=== PATIENT | male | born 1955 | race Asian ===

== ENCOUNTER 2016-10-18 20:17 | Inpatient (IN) | payer OTHER ==
[~2016-10-18] VITALS: Ht 170.2 cm; Wt 78.9 kg
[~2016-10-18 20:17] MED LIST: Heparin 5000 units/ml inj IV ONE
[2016-10-18 20:31] VITALS: BP 169/133
[2016-10-18 21:03] LABS: BASOPHILS % (AUTO) 1.5 % (0.0-2.0); EOSINOPHILS % (AUTO) 2.9 % (0.0-3.0); LYMPHOCYTES % (AUTO) 18.6 % (20.0-45.0); MEAN CORPUSCULAR HEMOGLOBIN 30.9 PG (27.0-31.0); MEAN CORPUSCULAR HGB CONC 32.5 G/DL (32.0-36.0); MEAN CORPUSCULAR VOLUME 95 FL (80-99); MONOCYTES % (AUTO) 3.3 % (1.0-10.0); NEUTROPHILS % (AUTO) 73.7 % (45.0-75.0); PLATELET COUNT 172 K/UL (150-450); RED BLOOD COUNT 5.02 M/UL (4.70-6.10); WHITE BLOOD COUNT 13.6 K/UL (4.8-10.8)
--- NOTE | 2016-10-18 21:04 | Emergency Room Report ---
History of Present Illness General Chief Complaint: Chest Pain Source: Patient, Family Member, EMS Present Illness HPI 61 YOM BIBEMS with all day of nausea/vomiting, diaphoresis, chest pain. Didnt improve so son called EMS tonight. Patient given Nitro, ASA with improvement in chest pain to 4/10. Denies fever/chills, cough, SOB. History of HTN but stopped taking med 6 months prior. Denies other med problems, smoking, ETOH, drug use. No prior history of AMI. Allergies: Coded Allergies: No Known Allergies (Unverified , 10/18/16) Patient History Past Medical History: HTN Past Surgical History: none Pertinent Family History: none Social History: Denies: alcohol use, drug use, smoking Immunizations: UTD Reviewed Nursing Documentation: PMH: Agreed, PSxH: Agreed Nursing Documentation-PMH Past Medical History: No History, Except For Hx Hypertension: Yes Review of Systems All Other Systems: negative except mentioned in HPI Physical Exam Vital Signs Date Time Temp Pulse Resp B/P Pulse Ox O2 Delivery O2 Flow Rate FiO2 10/18/16 20:14 97.2 58 14 162/105 99 Room Air Sp02 EP Interpretation: reviewed, abnormal General Appearance: normal inspection, GCS 15, non-toxic, moderate distress, other - pale diaphoretic Head: normocephalic, atraumatic Eyes: bilateral eye EOMI, bilateral eye PERRL ENT: normal ENT inspection, hearing grossly normal, normal voice Neck: normal inspection, full range of motion, supple, no bony tend Respiratory: normal inspection, lungs clear, normal breath sounds, no respiratory distress, no retraction, no wheezing Cardiovascular #1: normal peripheral pulses, regular rate, rhythm, no edema, no gallop, bradycardia Gastrointestinal: normal inspection, normal bowel sounds, non tender, soft, no guarding, no hernia Genitourinary: no CVA tenderness Musculoskeletal: normal inspection, back normal, normal range of motion, Jae' s Sign negative Neurologic: normal inspection, alert, oriented x3, responsive, project hire III-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 unstable angina vs MSK pain Possible interventions - Heparin, SL Ntg, Nitro drip, Thrombolytics, repeat EKG. Atropin was given 2x in ED ASA given by EMS Critical care time of 45 minutes including: re-exams and consultations and review of serial EKG's and Laboratory tests, not including reportable procedures and consulting with Dr Smith Cardiology Medical Decision Making Diagnostic Impression: Primary Impression: Chest pain Qualified Codes: R07.2 - Precordial pain Additional Impressions: Bradycardia Hypokalemia ER Course 61 YO M with substernal chest pain with assoc n/v/diaphoresis. Was given SL nitro, ASA by EMS Became bradycardic but asymptomatic in ED Given 2x atropine with improvement HR to >60 pacer pads placed on patient Repeat serial ECG does not show ST elevation or dynamic ischemia Dr Smith consulted, agrees with plan for atropine, admission, will follow Labs: Mild leuks, likely stress reaction. Troponin 0. K 3.2 Potassium repleted IV Endorsed to Dr Melo at 930pm for NOEL admission EKG Diagnostic Results Rate: bradycardiac Rhythm: other - ?Mild ST elevation in 2, 3 ST Segments: no acute changes ASA given to the pt in ED: No Rhythm Strip Diag. Results EP Interpretation: yes Rate: 45 Rhythm: NSR, no PVC's, no ectopy Chest X-Ray Diagnostic Results EP Interpretation: Yes Findings: no consolidation, no effusion, no pneumothorax, no acute cardiopulmonary disease Number of Views: 1 Last Vital Signs Date Time Temp Pulse Resp B/P Pulse Ox O2 Delivery O2 Flow Rate FiO2 10/18/16 20:31 98.0 56 21 169/133 99 Room Air Status: improved Disposition: ADMITTED INPATIENT Condition: Critical Referrals: [facility],REFERRING (PCP) KARTHIK GENAO M.D. Oct 18, 2016 21:04
[2016-10-18] MEDS ORDERED: Atropine Sulfate 0.4mg/ml inj ONE ×2 (21:16→21:22)
[2016-10-18 21:28] LABS: ALANINE AMINOTRANSFERASE 12 U/L (3-41); ALBUMIN/GLOBULIN RATIO 2.2 (1.0-2.7); ANION GAP 16 (5-15); ASPARTATE AMINO TRANSFERASE 16 U/L (5-40); CALCIUM 7.5 mg/dL (8.6-10.2); CARBON DIOXIDE 22 mEQ/L (20-30); CHLORIDE 107 mEQ/L (98-107); CREATININE 0.8 mg/dL (0.7-1.2); GLOMERULAR FILTRATION RATE > 60 mL/min (>60); HEMOLYSIS 6; POTASSIUM 3.2 mEQ/L (3.4-4.9); SODIUM 145 mEQ/L (135-145); TOTAL PROTEIN 5.5 g/dL (6.6-8.7); TROPONIN I < 0.30 ng/mL (<=0.30)
[2016-10-18 21:38] LABS: CKMB 1.9 ng/mL (< 6.7)
[2016-10-18 22:00] VITALS: BP 138/62
[2016-10-18] MEDS ORDERED: Miralax 17gm pkt ORAL PRN (22:15)
[2016-10-18] MEDS ORDERED: DuoNeb 0.5-3(2.5)mg/3ml neb HHN PRN (22:15)
[2016-10-18] MEDS ORDERED: Nitroglycerin Subl 0.4mg tab (Bottle Of 25) SL PRN (22:15)
[2016-10-18] MEDS ORDERED: Diltiazem 25mg/5ml IV PRN (22:15)
[2016-10-18] MEDS ORDERED: Ketorolac 30mg Inj IV PRN (22:15)
[2016-10-18] MEDS ORDERED: Atropine Sulfate 0.4mg/ml inj 20ML IVP ONE (22:30)
[2016-10-18] MEDS ORDERED: Atropine Sulfate 0.4mg/ml inj IVP ONE (22:30)
--- NOTE | 2016-10-18 22:31 | Cardiology Progress Note ---
Assessment/Plan Assessment/Plan [id number] admit ot icu heparin asa repeat ekg trop and full echo Objective Last 24 Hour Vital Signs Date Time Temp Pulse Resp B/P Pulse Ox O2 Delivery O2 Flow Rate FiO2 10/18/16 20:31 98.0 56 21 169/133 99 Room Air 10/18/16 20:31 56 21 Room Air 10/18/16 20:14 97.2 58 14 162/105 99 Room Air Laboratory Tests Test 10/18/16 20:40 White Blood Count 13.6 K/UL (4.8-10.8) H Red Blood Count 5.02 M/UL (4.70-6.10) Hemoglobin 15.5 G/DL (14.2-18.0) Hematocrit 47.9 % (42.0-52.0) Mean Corpuscular Volume 95 FL (80-99) Mean Corpuscular Hemoglobin 30.9 PG (27.0-31.0) Mean Corpuscular Hemoglobin Concent 32.5 G/DL (32.0-36.0) Red Cell Distribution Width 12.0 % (11.6-14.8) Platelet Count 172 K/UL (150-450) Mean Platelet Volume 8.0 FL (6.5-10.1) Neutrophils (%) (Auto) 73.7 % (45.0-75.0) Lymphocytes (%) (Auto) 18.6 % (20.0-45.0) L Monocytes (%) (Auto) 3.3 % (1.0-10.0) Eosinophils (%) (Auto) 2.9 % (0.0-3.0) Basophils (%) (Auto) 1.5 % (0.0-2.0) Sodium Level 145 mEQ/L (135-145) Potassium Level 3.2 mEQ/L (3.4-4.9) L Chloride Level 107 mEQ/L (98-107) Carbon Dioxide Level 22 mEQ/L (20-30) Anion Gap 16 (5-15) H Blood Urea Nitrogen 19 mg/dL (7-23) Creatinine 0.8 mg/dL (0.7-1.2) Estimat Glomerular Filtration Rate > 60 mL/min (>60) Glucose Level 116 mg/dL (74-106) H Calcium Level 7.5 mg/dL (8.6-10.2) L Total Bilirubin 0.3 mg/dL (0.0-1.2) Aspartate Amino Transf (AST/SGOT) 16 U/L (5-40) Alanine Aminotransferase (ALT/SGPT) 12 U/L (3-41) Alkaline Phosphatase 54 U/L (40-129) Total Creatine Kinase 133 U/L (38-174) Creatine Kinase MB 1.9 ng/mL (< 6.7) Creatine Kinase MB Relative Index 1.4 Troponin I < 0.30 ng/mL (<=0.30) Total Protein 5.5 g/dL (6.6-8.7) L Albumin 3.8 g/dL (3.5-5.2) Globulin 1.7 g/dL Albumin/Globulin Ratio 2.2 (1.0-2.7) JENNIFER SUTTON Oct 18, 2016 22:31
[2016-10-18 22:39] VITALS: BP 146/86
[2016-10-18] MEDS ORDERED: Nitroglycerin 2% oint pkt TOPIC SCH (22:45)
[2016-10-19] VITALS (27 sets, daily range): BP systolic 123–161; BP diastolic 43–96
--- NOTE | 2016-10-19 02:28 | Consultation ---
DATE OF CONSULTATION: CARDIOLOGY CRITICAL CARE NOTE CONSULTING PHYSICIAN: Jassi Stephens M.D. REFERRING PHYSICIAN: Arianna Melo M.D. REASON FOR CONSULT: Chest pain and bradycardia. HISTORY OF PRESENT ILLNESS: This is a 61-year-old, gentleman, who presented to the hospital because of the headaches, nausea, and vomiting that started earlier this morning. He has had some slight chest pain that resolved. Approximately three to four hours ago, he started having some more pain in the center of the chest. He describes the discomfort as constricting tightening sensation. He presented to the emergency room and was diaphoretic that he has been apparently all day. He is no longer having the chest pain nor the headache nor the nausea nor the vomiting and he feels quite comfortable at the present time. He has had the same discomfort for number of years that would intermittently present, but not really exertional related. He has never discussed this with his doctor. In fact he, has not seen a doctor for approximately six months. PAST MEDICAL HISTORY: Positive for high blood pressure and high cholesterol. No history of heart attack. No cancer, stroke, hepatitis, tuberculosis, asthma, emphysema, ulcers, kidney problems, liver problems, thyroid problems, and anemia. He may have had some arthritis. No prostate problems. ALLERGIES: He has no known drug allergies. SOCIAL HISTORY: He quit smoking approximately 26 years ago. No alcohol. No drugs. REVIEW OF SYSTEMS: Constitutional: Negative. Pulmonary: Negative. Cardiac: There has not been any real PND or orthopnea. He does occasionally get palpitations, occasionally dizzy, and lightheaded when he sits up. Gastrointestinal: Positive for nausea and vomiting. No diarrhea. No bloody stools or black tarry stools. Genitourinary: Negative. PHYSICAL EXAMINATION: GENERAL: Shows to be middle-aged gentleman, in no apparent respiratory distress. NECK: Supple. No jugular venous distention. Carotid upstrokes intact. LUNGS: Appear to be clear to auscultation and percussion. CARDIAC: S1 is normal. S2 is normal. Regular rate and rhythm. No heaves. No thrills. No gallops noted. ABDOMEN: Soft and nontender. Positive bowel sounds. EXTREMITIES: There is no clubbing, cyanosis, nor is there any edema. NEUROLOGIC: He is awake, alert, responsive, and in no apparent respiratory distress. LABORATORY DATA: He had several EKGs. He has had some ST-segment elevation in leads V1 and V2, probably more pronounced in the second EKG, although this is very minimal and he does have T-wave inversions in V1 and V2. He did have it earlier in V3 and V4 and those T-wave changes have really resolved. His initial EKG did not have any evidence of the T-wave inversions in those leads and those apparently became present and subsequently have resolved. He has had a chest x-ray. The chest x-ray, to my reading, does not really appear to be significantly abnormal. No infiltrates. He does not seem to have a widening of the mediastinum and no pleural effusion is noted. Troponin of less than 0.03, at least the first set. His white count was 13.6, hemoglobin 15.5, and a platelet count 172,000. Sodium is 142, potassium 3.2, chloride 107, bicarbonate 22, bicarb of 23, BUN of 19, creatinine 0.8, glucose of 116, and calcium is 7.5. His albumin is only 3.8. Troponin less than 0.03 and no other data available. I did personally perform a bedside limited non-recordable echo. His LV function on the views that were obtainable appeared to be intact. I did not appreciate any segmental wall motion abnormalities on this echocardiogram at the time that it was being done. ASSESSMENT: 1. Chest pain. 2. Coronary syndrome, likely. 3. Hypertension history. 4. Hyperlipidemia history. 5. Bradycardia, possibly vagal related. PLAN: Dr. Melo, this patient was seen in cardiac consultation. I suspect that he may have had an acute coronary syndrome. He seems quite comfortable at the present time, but would place him on some nitroglycerin, aspirin, and heparin for the time being. Serial enzymes, EKGs, and official echocardiogram to be performed tomorrow. We are trying to locate an old EKG to compare with these changes that has not been successful at least at [facility] where the patient has previously thought to have been admitted. I have asked the ER staff to contact the other hospitals to see if any older EKGs can be possible for further evaluation. If the coronary syndrome is proven then he definitely would need a cardiac catheterization. His pain has completely resolved. The pain really never radiated to the back nor to the left arm and unfortunately, he has had the same pain apparently to a more less degree over number of years on several multiple occasions and not exertion related and he has not had been studied. In either case, the further recommendations based on report of the above, probably should be monitored in a closer setting. Jassi Stephens M.D. DR: LANDEN JOB#: [id number] CC:
[2016-10-19 03:47] LABS: PROTHROMBIN TIME 10.2 SEC (9.30-11.50)
[2016-10-19] MEDS ORDERED: Heparin 5000 units/ml inj IV ONE (04:30)
[2016-10-19] MEDS ORDERED: Heparin 25,000u/D5W 500ml 500 ML IV SCH (04:30)
[2016-10-19] MEDS: Morphine Sulfate 2mg/ml Inj IVP PRN (04:37)
[2016-10-19 06:31] LABS: BASOPHILS % (AUTO) 0.7 % (0.0-2.0); LYMPHOCYTES % (AUTO) 15.1 % (20.0-45.0); MEAN CORPUSCULAR HEMOGLOBIN 31.4 PG (27.0-31.0); MEAN CORPUSCULAR HGB CONC 33.3 G/DL (32.0-36.0); MEAN CORPUSCULAR VOLUME 94 FL (80-99); MEAN PLATELET VOLUME 6.7 FL (6.5-10.1); MONOCYTES % (AUTO) 2.5 % (1.0-10.0); NEUTROPHILS % (AUTO) 80.8 % (45.0-75.0); PLATELET COUNT 137 K/UL (150-450); RED BLOOD COUNT 4.48 M/UL (4.70-6.10); RED CELL DISTRIBUTION WIDTH 11.7 % (11.6-14.8); WHITE BLOOD COUNT 10.1 K/UL (4.8-10.8)
[2016-10-19 06:51] LABS: CHOLESTEROL 178 mg/dL (< 200); CHOLESTEROL/HDL RATIO 4.5 (3.3-4.4); CRP QUANT < 0.3 mg/dL (< 0.5); HEMOLYSIS 7; LDL CHOLESTEROL (CALC.) 124 mg/dL (60-99)
[2016-10-19 06:58] LABS: ANION GAP 12 (5-15); CALCIUM 8.5 mg/dL (8.6-10.2); CARBON DIOXIDE 25 mEQ/L (20-30); CHLORIDE 105 mEQ/L (98-107); CREATININE 0.7 mg/dL (0.7-1.2); GLOMERULAR FILTRATION RATE > 60 mL/min (>60); HEMOLYSIS 7; POTASSIUM 4.4 mEQ/L (3.4-4.9); SODIUM 142 mEQ/L (135-145)
[2016-10-19 07:14] LABS: THYROID STIMULATING HORMONE 0.502 uIU/mL (0.300-4.500)
[2016-10-19 07:40] LABS: TROPONIN I < 0.30 ng/mL (<=0.30)
--- NOTE | 2016-10-19 08:02 | Cardiology Progress Note ---
Assessment/Plan Assessment/Plan 1. Chest pain. 2. Coronary syndrome, now unlikely. 3. Hypertension history. 4. Hyperlipidemia history. 5. Bradycardia, possibly vagal related. 6. head ache 7. recurrent nausea vomiting head ache resolved until just now restarted agian as is t did yest am and resolved last nite no cp today trop neg ekg not done yet will dc heparin since trop neg await ekg antiemetics echo Subjective Cardiovascular: Denies: lightheadedness Respiratory: Denies: shortness of breath Gastrointestinal/Abdominal: Reports: nausea, vomiting Subjective recurrent head ache juast stared with nausea no cp confirmed by sweat band separator Objective Last 24 Hour Vital Signs Date Time Temp Pulse Resp B/P Pulse Ox O2 Delivery O2 Flow Rate FiO2 10/19/16 07:43 59 16 Room Air 21 10/19/16 07:00 57 13 134/83 97 Room Air 10/19/16 06:00 45 21 123/43 97 Room Air 10/19/16 05:00 49 21 134/84 97 Room Air 10/19/16 04:00 98.1 50 19 139/84 98 Room Air 10/19/16 03:00 49 18 127/87 98 Room Air 10/19/16 02:00 55 18 141/91 98 Room Air 10/19/16 01:39 135/87 10/19/16 01:00 47 18 135/87 98 Room Air 10/19/16 00:50 98.0 46 14 145/85 99 Room Air 10/19/16 00:40 51 18 145/85 98 Room Air 10/19/16 00:40 51 10/19/16 00:31 54 13 139/91 97 Room Air 10/19/16 00:00 98.4 54 13 139/91 97 Room Air 10/18/16 22:39 98.4 62 19 146/86 99 Room Air 10/18/16 22:00 97.8 0 19 138/62 99 Room Air 10/18/16 20:31 98.0 56 21 169/133 99 Room Air 10/18/16 20:31 56 21 Room Air 10/18/16 20:14 97.2 58 14 162/105 99 Room Air General Appearance: no apparent distress Neck: no JVD Cardiovascular: normal rate, regular rhythm Respiratory/Chest: lungs clear, normal breath sounds Abdomen: normal bowel sounds, non tender, soft Extremities: no swelling Intake and Output 10/18/16 10/19/16 19:00 07:00 Intake Total 63418.051 ml Output Total 600 ml Balance 51315.051 ml Intake Oral 200 ml IV Total 78358.051 ml Output Urine Total 600 ml Laboratory Tests Test 10/18/16 20:40 10/19/16 03:15 White Blood Count 13.6 K/UL (4.8-10.8) H 10.1 K/UL (4.8-10.8) Red Blood Count 5.02 M/UL (4.70-6.10) 4.48 M/UL (4.70-6.10) L Hemoglobin 15.5 G/DL (14.2-18.0) 14.1 G/DL (14.2-18.0) L Hematocrit 47.9 % (42.0-52.0) 42.2 % (42.0-52.0) Mean Corpuscular Volume 95 FL (80-99) 94 FL (80-99) Mean Corpuscular Hemoglobin 30.9 PG (27.0-31.0) 31.4 PG (27.0-31.0) H Mean Corpuscular Hemoglobin Concent 32.5 G/DL (32.0-36.0) 33.3 G/DL (32.0-36.0) Red Cell Distribution Width 12.0 % (11.6-14.8) 11.7 % (11.6-14.8) Platelet Count 172 K/UL (150-450) 137 K/UL (150-450) L Mean Platelet Volume 8.0 FL (6.5-10.1) 6.7 FL (6.5-10.1) Neutrophils (%) (Auto) 73.7 % (45.0-75.0) 80.8 % (45.0-75.0) H Lymphocytes (%) (Auto) 18.6 % (20.0-45.0) L 15.1 % (20.0-45.0) L Monocytes (%) (Auto) 3.3 % (1.0-10.0) 2.5 % (1.0-10.0) Eosinophils (%) (Auto) 2.9 % (0.0-3.0) 1.0 % (0.0-3.0) Basophils (%) (Auto) 1.5 % (0.0-2.0) 0.7 % (0.0-2.0) Sodium Level 145 mEQ/L (135-145) 142 mEQ/L (135-145) Potassium Level 3.2 mEQ/L (3.4-4.9) L 4.4 mEQ/L (3.4-4.9) Chloride Level 107 mEQ/L (98-107) 105 mEQ/L (98-107) Carbon Dioxide Level 22 mEQ/L (20-30) 25 mEQ/L (20-30) Anion Gap 16 (5-15) H 12 (5-15) Blood Urea Nitrogen 19 mg/dL (7-23) 17 mg/dL (7-23) Creatinine 0.8 mg/dL (0.7-1.2) 0.7 mg/dL (0.7-1.2) Estimat Glomerular Filtration Rate > 60 mL/min (>60) > 60 mL/min (>60) Glucose Level 116 mg/dL (74-106) H 97 mg/dL (74-106) Calcium Level 7.5 mg/dL (8.6-10.2) L 8.5 mg/dL (8.6-10.2) L Total Bilirubin 0.3 mg/dL (0.0-1.2) Aspartate Amino Transf (AST/SGOT) 16 U/L (5-40) Alanine Aminotransferase (ALT/SGPT) 12 U/L (3-41) Alkaline Phosphatase 54 U/L (40-129) Total Creatine Kinase 133 U/L (38-174) Creatine Kinase MB 1.9 ng/mL (< 6.7) Creatine Kinase MB Relative Index 1.4 Troponin I < 0.30 ng/mL (<=0.30) < 0.30 ng/mL (<=0.30) Total Protein 5.5 g/dL (6.6-8.7) L Albumin 3.8 g/dL (3.5-5.2) Globulin 1.7 g/dL Albumin/Globulin Ratio 2.2 (1.0-2.7) Prothrombin Time 10.2 SEC (9.30-11.50) Prothromb Time International Ratio 1.0 (0.9-1.1) Activated Partial Thromboplast Time 26 SEC (23-33) C-Reactive Protein, Quantitative < 0.3 mg/dL (< 0.5) Triglycerides Level 70 mg/dL (< 150) Cholesterol Level 178 mg/dL (< 200) LDL Cholesterol 124 mg/dL (60-99) H HDL Cholesterol 40 mg/dL (> 60) Cholesterol/HDL Ratio 4.5 (3.3-4.4) H Thyroid Stimulating Hormone (TSH) 0.502 uIU/mL (0.300-4.500) JENNIFER SUTTON Oct 19, 2016 08:02
[2016-10-19] MEDS ORDERED: Atropine Inj 1mg/10ml Syr ONE (08:10)
[2016-10-19] MEDS: Aspirin Baby 81mg ORAL SCH (08:21)
[2016-10-19] MEDS ORDERED: Heparin 5000 units/ml inj SUBQ SCH (09:00)
[2016-10-19] MEDS ORDERED: Atropine Inj 1mg/10ml Syr IVP ONE (09:00)
[2016-10-19] MEDS ORDERED: Atropine Sulfate 0.4mg/ml inj IVP ONE (09:00)
[2016-10-19] MEDS ORDERED: AMLODIPINE BESY10 MG ORAL (10:24)
[2016-10-19] MEDS ORDERED: PRAVASTATIN SOD20 M1 ORAL (10:24)
[2016-10-19] MEDS ORDERED: LOSARTAN-HCTZ1 EACH ORAL (10:24)
[2016-10-19] MEDS ORDERED: ASPIR 8181 MG ORAL (10:25)
--- NOTE | 2016-10-19 10:53 | History and Physical ---
History of Present Illness General Date patient seen: Oct 19, 2016 Reason for Hospitalization: Chest Pain Present Illness HPI 61 year old male with hx of HTN, noncompliant with meds, brought in by paramedics because of all day of nausea/vomiting, diaphoresis, chest pain. . Patient given Nitro, ASA with improvement in chest pain to 4/10. Pt was bradycardic in ER and was seen by Dr. Stephens who transferred the pt to ICU. Allergies: Coded Allergies: No Known Allergies (Unverified , 10/18/16) Medication History Scheduled Amlodipine Besylate* (Amlodipine Besylate*), 10 MG ORAL DAILY, (Reported) Aspirin* (Aspir 81*), 81 MG ORAL DAILY, (Reported) Losartan/Hydrochlorothiazide (Losartan-Hctz 100-12.5 Mg Tab), 1 TAB ORAL DAILY, (Reported) Pravastatin Sod* (Pravastatin Sod*), 20 MG ORAL BEDTIME, (Reported) Patient History Healthcare decision maker pt himself Resuscitation status Full Code Advanced Directive on File Past Medical/Surgical History Past Medical/Surgical History: (1) Hypertension Review of Systems Cardiovascular: Reports: chest pain Gastrointestinal: Reports: nausea, vomiting Physical Exam Lines, tubes and drains: peripheral, central line HEENT: normocephalic, atraumatic Neck: non-tender, normal alignment Respiratory/Chest: chest wall non-tender, lungs clear Cardiovascular/Chest: normal peripheral pulses, normal rate Abdomen: normal bowel sounds, non tender Genitourinary/Rectal: normal genital exam Extremities: normal range of motion Skin Exam: normal pigmentation 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 Last 24 Hour Vital Signs Date Time Temp Pulse Resp B/P Pulse Ox O2 Delivery O2 Flow Rate FiO2 10/19/16 10:00 97.5 57 16 152/96 99 Room Air 10/19/16 09:00 63 16 151/63 100 Nasal Cannula 2.0 10/19/16 08:30 75 15 151/83 100 Nasal Cannula 2.0 10/19/16 08:00 97.3 40 19 134/84 100 Room Air 10/19/16 08:00 45 10/19/16 07:43 59 16 Room Air 21 10/19/16 07:00 57 13 134/83 97 Room Air 10/19/16 06:00 45 21 123/43 97 Room Air 10/19/16 05:00 49 21 134/84 97 Room Air 10/19/16 04:00 98.1 50 19 139/84 98 Room Air 10/19/16 03:00 49 18 127/87 98 Room Air 10/19/16 02:00 55 18 141/91 98 Room Air 10/19/16 01:39 135/87 10/19/16 01:00 47 18 135/87 98 Room Air 10/19/16 00:50 98.0 46 14 145/85 99 Room Air 10/19/16 00:40 51 18 145/85 98 Room Air 10/19/16 00:40 51 10/19/16 00:31 54 13 139/91 97 Room Air 10/19/16 00:00 98.4 54 13 139/91 97 Room Air 10/18/16 22:39 98.4 62 19 146/86 99 Room Air 10/18/16 22:00 97.8 0 19 138/62 99 Room Air 10/18/16 20:31 98.0 56 21 169/133 99 Room Air 10/18/16 20:31 56 21 Room Air 10/18/16 20:14 97.2 58 14 162/105 99 Room Air Intake and Output 10/18/16 10/19/16 19:00 07:00 Intake Total 71323.051 ml Output Total 600 ml Balance 12341.051 ml Intake Oral 200 ml IV Total 07256.051 ml Output Urine Total 600 ml Laboratory Tests Test 10/18/16 20:40 10/19/16 03:15 White Blood Count 13.6 K/UL (4.8-10.8) H 10.1 K/UL (4.8-10.8) Red Blood Count 5.02 M/UL (4.70-6.10) 4.48 M/UL (4.70-6.10) L Hemoglobin 15.5 G/DL (14.2-18.0) 14.1 G/DL (14.2-18.0) L Hematocrit 47.9 % (42.0-52.0) 42.2 % (42.0-52.0) Mean Corpuscular Volume 95 FL (80-99) 94 FL (80-99) Mean Corpuscular Hemoglobin 30.9 PG (27.0-31.0) 31.4 PG (27.0-31.0) H Mean Corpuscular Hemoglobin Concent 32.5 G/DL (32.0-36.0) 33.3 G/DL (32.0-36.0) Red Cell Distribution Width 12.0 % (11.6-14.8) 11.7 % (11.6-14.8) Platelet Count 172 K/UL (150-450) 137 K/UL (150-450) L Mean Platelet Volume 8.0 FL (6.5-10.1) 6.7 FL (6.5-10.1) Neutrophils (%) (Auto) 73.7 % (45.0-75.0) 80.8 % (45.0-75.0) H Lymphocytes (%) (Auto) 18.6 % (20.0-45.0) L 15.1 % (20.0-45.0) L Monocytes (%) (Auto) 3.3 % (1.0-10.0) 2.5 % (1.0-10.0) Eosinophils (%) (Auto) 2.9 % (0.0-3.0) 1.0 % (0.0-3.0) Basophils (%) (Auto) 1.5 % (0.0-2.0) 0.7 % (0.0-2.0) Sodium Level 145 mEQ/L (135-145) 142 mEQ/L (135-145) Potassium Level 3.2 mEQ/L (3.4-4.9) L 4.4 mEQ/L (3.4-4.9) Chloride Level 107 mEQ/L (98-107) 105 mEQ/L (98-107) Carbon Dioxide Level 22 mEQ/L (20-30) 25 mEQ/L (20-30) Anion Gap 16 (5-15) H 12 (5-15) Blood Urea Nitrogen 19 mg/dL (7-23) 17 mg/dL (7-23) Creatinine 0.8 mg/dL (0.7-1.2) 0.7 mg/dL (0.7-1.2) Estimat Glomerular Filtration Rate > 60 mL/min (>60) > 60 mL/min (>60) Glucose Level 116 mg/dL (74-106) H 97 mg/dL (74-106) Calcium Level 7.5 mg/dL (8.6-10.2) L 8.5 mg/dL (8.6-10.2) L Total Bilirubin 0.3 mg/dL (0.0-1.2) Aspartate Amino Transf (AST/SGOT) 16 U/L (5-40) Alanine Aminotransferase (ALT/SGPT) 12 U/L (3-41) Alkaline Phosphatase 54 U/L (40-129) Total Creatine Kinase 133 U/L (38-174) Creatine Kinase MB 1.9 ng/mL (< 6.7) Creatine Kinase MB Relative Index 1.4 Troponin I < 0.30 ng/mL (<=0.30) < 0.30 ng/mL (<=0.30) Total Protein 5.5 g/dL (6.6-8.7) L Albumin 3.8 g/dL (3.5-5.2) Globulin 1.7 g/dL Albumin/Globulin Ratio 2.2 (1.0-2.7) Prothrombin Time 10.2 SEC (9.30-11.50) Prothromb Time International Ratio 1.0 (0.9-1.1) Activated Partial Thromboplast Time 26 SEC (23-33) C-Reactive Protein, Quantitative < 0.3 mg/dL (< 0.5) Triglycerides Level 70 mg/dL (< 150) Cholesterol Level 178 mg/dL (< 200) LDL Cholesterol 124 mg/dL (60-99) H HDL Cholesterol 40 mg/dL (> 60) Cholesterol/HDL Ratio 4.5 (3.3-4.4) H Thyroid Stimulating Hormone (TSH) 0.502 uIU/mL (0.300-4.500) Height (Feet): 5 Height (Inches): 7.00 Weight (Pounds): 174 Medications Current Medications Medications (Trade) Dose Ordered Sig/Yang Route PRN Reason Start Time Stop Time Status Last Admin Dose Admin Acetaminophen (Tylenol) 650 mg Q4H PRN ORAL FEVER 10/18/16 22:15 11/17/16 22:14 10/19/16 08:02 Albuterol/ Ipratropium (DuoNeb 0.5-3(2.5)mg/3ml) 3 ml Q4H PRN HHN Shortness of Breath 10/18/16 22:15 10/23/16 22:14 Aspirin (ASA) 162 mg DAILY ORAL 10/19/16 09:00 11/18/16 08:59 10/19/16 08:21 Diltiazem HCl (Cardizem) 10 mg Q1H PRN IV heart rate more than 120, 10/18/16 22:15 11/17/16 22:14 Enalaprilat (Vasotec) 2.5 mg Q6H PRN IV sbp more than 160 10/18/16 22:15 11/17/16 22:14 Morphine Sulfate (Morphine Sulfate) 2 mg Q4H PRN IVP severe Pain (Pain Scale 7-10) 10/18/16 22:15 10/25/16 22:14 10/19/16 04:37 Nitroglycerin (Ntg) 0.4 mg Q5M PRN SL Prn Chest Pain 10/18/16 22:15 11/17/16 22:14 Ondansetron HCl (Zofran) 4 mg Q6H PRN IVP Nausea & Vomiting 10/18/16 22:15 11/17/16 22:14 10/19/16 08:02 Pantoprazole (Protonix) 40 mg DAILY ORAL 10/19/16 09:00 11/18/16 08:59 10/19/16 08:21 Polyethylene Glycol (Miralax) 17 gm DAILYPRN PRN ORAL Constipation 10/18/16 22:15 11/17/16 22:14 Temazepam (Restoril) 15 mg HSPRN PRN ORAL Insomnia 10/18/16 22:15 10/25/16 22:14 Assessment/Plan Problem List: (1) ACS (acute coronary syndrome) ICD Codes: I24.9 - Acute ischemic heart disease, unspecified SNOMED: 320976046 (2) Bradycardia ICD Codes: R00.1 - Bradycardia, unspecified SNOMED: 65517497 (3) Hypokalemia ICD Codes: E87.6 - Hypokalemia SNOMED: 55331497 (4) Hypertension ICD Codes: I10 - Essential (primary) hypertension SNOMED: 18989304 Assessment/Plan ICU admit serial ekg, troponin ehco cardio f/u might need cardiac cath. MINERVA RENTERIA Oct 19, 2016 10:53
--- NOTE | 2016-10-19 11:47 | Diagnostic Imaging Report ---
Indication: Chest pain Technique: One view of the chest Comparison: none Findings: Lungs and pleural space are clear. Heart size is borderline enlarged. Tortuous ectatic aorta. Impression: Findings as noted including borderline cardiomegaly. No acute process
[2016-10-20] VITALS (24 sets, daily range): BP systolic 140–179; BP diastolic 79–101
[2016-10-20 07:24] LABS: TROPONIN I < 0.30 ng/mL (<=0.30)
[2016-10-20] MEDS: Aspirin Baby 81mg ORAL SCH ×2 (09:16→09:18)
[2016-10-20] MEDS: Enalaprilat 2.5mg/2ml Inj IV PRN ×3 (09:17→17:42)
--- NOTE | 2016-10-20 10:33 | Pulmonolgy Critical Care Note ---
Critical Care - Asmt/Plan Problems: (1) ACS (acute coronary syndrome) (2) Hypertension (3) Bradycardia Respiratory: monitor respiratory rate, adjust FIO2 Cardiac: continue to monitor HR/BP Renal: F/U I&O Gastrointestinal: continue feedings/current rate Endocrine: monitor blood sugar Hematologic: transfuse if hgb<8.5 Neurologic: PRN Ativan, PRN Morphine, keep patient comfortable Prophylaxis: Heparin Notes Reviewed: cardio Discussed with: other - awaiting the recommenddations of of the Cardiology about Critical Care - Objective Last 24 Hour Vital Signs Date Time Temp Pulse Resp B/P Pulse Ox O2 Delivery O2 Flow Rate FiO2 10/20/16 09:18 174/95 10/20/16 09:17 174/95 10/20/16 09:00 97.2 51 20 174/95 95 Nasal Cannula 2.0 10/20/16 08:29 21 10/20/16 08:29 96 Room Air 21 10/20/16 08:29 53 16 Room Air 21 10/20/16 08:00 52 10/20/16 08:00 52 20 171/92 95 Nasal Cannula 2.0 10/20/16 07:00 52 20 172/91 95 Nasal Cannula 2.0 10/20/16 06:00 54 20 155/86 95 Nasal Cannula 2.0 10/20/16 05:00 51 20 155/85 95 Nasal Cannula 2.0 10/20/16 04:00 97.8 49 20 158/85 95 Nasal Cannula 2.0 10/20/16 04:00 48 10/20/16 03:00 51 20 147/89 95 Nasal Cannula 2.0 10/20/16 02:00 50 20 147/89 95 Nasal Cannula 2.0 10/20/16 01:00 50 20 140/88 99 Nasal Cannula 2.0 10/20/16 00:00 48 10/20/16 00:00 97.6 48 20 145/92 99 Nasal Cannula 2.0 10/19/16 23:00 49 20 156/93 99 Nasal Cannula 2.0 10/19/16 22:00 48 16 159/93 98 Nasal Cannula 2.0 10/19/16 21:00 53 14 143/93 98 Nasal Cannula 2.0 10/19/16 20:00 48 10/19/16 20:00 97.8 52 16 158/94 97 Nasal Cannula 2.0 10/19/16 19:46 97 Nasal Cannula 2.0 28 10/19/16 19:46 Nasal Cannula 2.0 28 10/19/16 19:45 47 16 Nasal Cannula 2.0 28 10/19/16 19:00 48 14 157/84 98 Nasal Cannula 2.0 10/19/16 18:00 44 15 155/89 98 Nasal Cannula 2.0 10/19/16 17:00 46 15 161/85 99 Nasal Cannula 2.0 10/19/16 16:00 97.6 43 13 151/87 98 Nasal Cannula 2.0 10/19/16 16:00 43 10/19/16 15:00 43 15 146/89 98 Nasal Cannula 2.0 10/19/16 14:00 48 12 145/86 99 Nasal Cannula 2.0 10/19/16 13:00 47 14 138/81 100 Nasal Cannula 2.0 10/19/16 12:00 97.7 48 15 149/84 99 Nasal Cannula 2.0 10/19/16 12:00 51 10/19/16 10:59 51 15 152/96 100 Nasal Cannula 2.0 Status: awake Condition: critical HEENT: atraumatic Neck: full ROM Lungs: clear Heart: HR/BP stable, HR/BP unstable Abdomen: soft, non-tender, active bowel sounds Extremities: no C/C/E, edema Critical Care - Subjective ROS Limited/Unobtainable: No ICU Day: asymptomatic Condition: improving EKG Rhythm: Sinus Rhythm FI02: 21 I&O: Intake and Output 10/19/16 10/20/16 19:00 07:00 Intake Total 450 ml 180 ml Output Total 1250 ml 1400 ml Balance -800 ml -1220 ml Intake Oral 450 ml 180 ml Output Urine Total 1250 ml 1400 ml Labs: Laboratory Tests Test 10/20/16 05:50 Troponin I < 0.30 ng/mL (<=0.30) MINERVA RENTERIA Oct 20, 2016 10:33
--- NOTE | 2016-10-20 18:18 | Cardiology Progress Note ---
Assessment/Plan Assessment/Plan 1. Chest pain. 2. Coronary syndrome, now unlikely. 3. Hypertension history. 4. Hyperlipidemia history. 5. Bradycardia, possibly vagal related. 6. head ache 7. recurrent nausea vomiting all trop remain neg echo ? doen madison today but nto sig no pain nwo tranfer to tel stress cardiolite in am i am avoiding adenosine due to madison madison is just sinus no pauses hoem if stress test is ok Subjective Cardiovascular: Denies: chest pain, lightheadedness, palpitations Respiratory: Denies: shortness of breath Gastrointestinal/Abdominal: Denies: abdominal pain Genitourinary: Denies: burning Subjective no head ache Objective Last 24 Hour Vital Signs Date Time Temp Pulse Resp B/P Pulse Ox O2 Delivery O2 Flow Rate FiO2 10/20/16 17:42 175/97 10/20/16 17:00 98.1 51 18 164/97 98 Nasal Cannula 2.0 10/20/16 16:15 53 10/20/16 16:00 59 18 170/101 98 Nasal Cannula 2.0 10/20/16 15:00 55 18 157/87 98 Nasal Cannula 2.0 10/20/16 14:00 51 11 177/96 98 Nasal Cannula 2.0 10/20/16 13:00 49 20 179/97 98 Nasal Cannula 2.0 10/20/16 12:16 50 10/20/16 12:00 97.0 48 18 178/89 98 Nasal Cannula 2.0 10/20/16 11:00 50 20 168/88 98 Nasal Cannula 2.0 10/20/16 10:00 52 20 165/85 99 Nasal Cannula 2.0 10/20/16 09:18 174/95 10/20/16 09:17 174/95 10/20/16 09:00 97.2 51 20 174/95 95 Nasal Cannula 2.0 10/20/16 08:29 21 10/20/16 08:29 96 Room Air 21 10/20/16 08:29 53 16 Room Air 21 10/20/16 08:00 52 10/20/16 08:00 52 20 171/92 95 Nasal Cannula 2.0 10/20/16 07:00 52 20 172/91 95 Nasal Cannula 2.0 10/20/16 06:00 54 20 155/86 95 Nasal Cannula 2.0 10/20/16 05:00 51 20 155/85 95 Nasal Cannula 2.0 10/20/16 04:00 97.8 49 20 158/85 95 Nasal Cannula 2.0 10/20/16 04:00 48 10/20/16 03:00 51 20 147/89 95 Nasal Cannula 2.0 10/20/16 02:00 50 20 147/89 95 Nasal Cannula 2.0 10/20/16 01:00 50 20 140/88 99 Nasal Cannula 2.0 10/20/16 00:00 48 10/20/16 00:00 97.6 48 20 145/92 99 Nasal Cannula 2.0 10/19/16 23:00 49 20 156/93 99 Nasal Cannula 2.0 10/19/16 22:00 48 16 159/93 98 Nasal Cannula 2.0 10/19/16 21:00 53 14 143/93 98 Nasal Cannula 2.0 10/19/16 20:00 48 10/19/16 20:00 97.8 52 16 158/94 97 Nasal Cannula 2.0 10/19/16 19:46 97 Nasal Cannula 2.0 28 10/19/16 19:46 Nasal Cannula 2.0 28 10/19/16 19:45 47 16 Nasal Cannula 2.0 28 10/19/16 19:00 48 14 157/84 98 Nasal Cannula 2.0 General Appearance: alert Neck: supple Cardiovascular: normal rate, regular rhythm Respiratory/Chest: lungs clear, normal breath sounds Abdomen: normal bowel sounds, non tender, soft Extremities: no swelling Intake and Output 10/19/16 10/20/16 19:00 07:00 Intake Total 450 ml 180 ml Output Total 1250 ml 1400 ml Balance -800 ml -1220 ml Intake Oral 450 ml 180 ml Output Urine Total 1250 ml 1400 ml Laboratory Tests Test 10/20/16 05:50 Troponin I < 0.30 ng/mL (<=0.30) JENNIFER SUTTON Oct 20, 2016 18:18
[2016-10-20] MEDS ORDERED: NS 275ml ONE (18:28)
[2016-10-20] MEDS: Losartan 50mg tab ORAL SCH (19:54)
[2016-10-20] MEDS: Morphine Sulfate 2mg/ml Inj IVP PRN (23:58)
[2016-10-21] VITALS (18 sets, daily range): BP systolic 108–161; BP diastolic 55–106
[2016-10-21] MEDS ORDERED: ALPRAZolam 0.5mg tab ORAL PRN ×2 (01:00→21:00)
[2016-10-21 01:20] LABS: TROPONIN I < 0.30 ng/mL (<=0.30)
[2016-10-21 06:18] LABS: BASOPHILS % (AUTO) 0.7 % (0.0-2.0); EOSINOPHILS % (AUTO) 0.6 % (0.0-3.0); LYMPHOCYTES % (AUTO) 10.5 % (20.0-45.0); MEAN CORPUSCULAR HEMOGLOBIN 31.1 PG (27.0-31.0); MEAN CORPUSCULAR HGB CONC 33.3 G/DL (32.0-36.0); MEAN CORPUSCULAR VOLUME 93 FL (80-99); MEAN PLATELET VOLUME 8.7 FL (6.5-10.1); MONOCYTES % (AUTO) 3.3 % (1.0-10.0); NEUTROPHILS % (AUTO) 84.9 % (45.0-75.0); PLATELET COUNT 149 K/UL (150-450); RED BLOOD COUNT 5.17 M/UL (4.70-6.10); WHITE BLOOD COUNT 8.6 K/UL (4.8-10.8)
--- NOTE | 2016-10-21 08:31 | Cardiology Progress Note ---
Assessment/Plan Assessment/Plan 1. Chest pain. 2. Coronary syndrome, now unlikely. 3. Hypertension history. 4. Hyperlipidemia history. 5. Bradycardia, possibly vagal related. 6. head ache 7. recurrent nausea vomiting 8. diaphoresis episodes all trop remain neg even tod ay echo not yet done no pain nwo tranfer to tele stress cardiolite in am i am avoiding adenosine due to madison madisno is just sinus no pauses home if stress test is ok not clear to me why he has genevieve bout of diaphoresis at admission and now will send out plama metanephrines to help evaluate for pheochromocytoma ? he will need to see md in future for fu on resutl , i have explaiend that to him with one our bengali speaking rn he indicated understand thsoe result take some tome to become avialabel Subjective Cardiovascular: Reports: palpitations, Denies: chest pain, lightheadedness Gastrointestinal/Abdominal: Denies: abdominal pain Subjective he apparentlty had palpitation an chest pressure and diaphorris got iv morphine an iv ntg he was anxious they requested anxiety med xnanax gi aguilar he feel fine now Objective Last 24 Hour Vital Signs Date Time Temp Pulse Resp B/P Pulse Ox O2 Delivery O2 Flow Rate FiO2 10/21/16 07:47 61 16 Nasal Cannula 2.0 28 10/21/16 07:46 98 Nasal Cannula 2.0 28 10/21/16 07:46 Nasal Cannula 2.0 28 10/21/16 06:00 66 18 144/88 98 Nasal Cannula 2.0 10/21/16 05:06 80 16 132/88 98 Nasal Cannula 2.0 10/21/16 04:00 75 10/21/16 04:00 97.5 75 16 129/83 97 Nasal Cannula 2.0 10/21/16 03:09 61 16 131/79 97 Nasal Cannula 2.0 10/21/16 02:00 65 16 115/72 98 Nasal Cannula 2.0 10/21/16 01:00 55 18 124/68 99 Nasal Cannula 2.0 10/21/16 00:00 52 10/21/16 00:00 97.0 70 18 108/64 99 Nasal Cannula 2.0 10/20/16 23:56 166/69 10/20/16 23:02 89 17 166/92 98 Nasal Cannula 2.0 10/20/16 22:09 167/93 10/20/16 22:00 69 16 167/82 97 Nasal Cannula 2.0 10/20/16 21:00 58 16 158/79 98 Nasal Cannula 2.0 10/20/16 20:17 49 16 Room Air 21 10/20/16 20:16 96 Room Air 21 10/20/16 20:16 Room Air 10/20/16 20:00 59 10/20/16 20:00 97.4 58 17 151/94 98 Nasal Cannula 2.0 10/20/16 19:54 174/94 10/20/16 19:54 64 174/94 10/20/16 19:00 56 16 174/94 98 Nasal Cannula 2.0 10/20/16 18:00 61 18 168/95 98 Nasal Cannula 2.0 10/20/16 17:42 175/97 10/20/16 17:00 98.1 51 18 164/97 98 Nasal Cannula 2.0 10/20/16 16:15 53 10/20/16 16:00 59 18 170/101 98 Nasal Cannula 2.0 10/20/16 15:00 55 18 157/87 98 Nasal Cannula 2.0 10/20/16 14:00 51 11 177/96 98 Nasal Cannula 2.0 10/20/16 13:00 49 20 179/97 98 Nasal Cannula 2.0 10/20/16 12:16 50 10/20/16 12:00 97.0 48 18 178/89 98 Nasal Cannula 2.0 10/20/16 11:00 50 20 168/88 98 Nasal Cannula 2.0 10/20/16 10:00 52 20 165/85 99 Nasal Cannula 2.0 10/20/16 09:18 174/95 10/20/16 09:17 174/95 10/20/16 09:00 97.2 51 20 174/95 95 Nasal Cannula 2.0 10/20/16 08:29 21 10/20/16 08:29 96 Room Air 21 10/20/16 08:29 53 16 Room Air 21 General Appearance: no apparent distress, alert Neck: no JVD Cardiovascular: normal rate, regular rhythm Respiratory/Chest: lungs clear, normal breath sounds Abdomen: non tender, soft Extremities: no swelling Intake and Output 10/20/16 10/21/16 19:00 07:00 Intake Total 850 ml Output Total 2180 ml 1000 ml Balance -1330 ml -1000 ml Intake Oral 850 ml Output Urine Total 2180 ml 1000 ml # Bowel Movements 2 Laboratory Tests Test 10/21/16 00:45 10/21/16 05:25 Troponin I < 0.30 ng/mL (<=0.30) White Blood Count 8.6 K/UL (4.8-10.8) Red Blood Count 5.17 M/UL (4.70-6.10) Hemoglobin 16.0 G/DL (14.2-18.0) Hematocrit 48.1 % (42.0-52.0) Mean Corpuscular Volume 93 FL (80-99) Mean Corpuscular Hemoglobin 31.1 PG (27.0-31.0) H Mean Corpuscular Hemoglobin Concent 33.3 G/DL (32.0-36.0) Red Cell Distribution Width 12.0 % (11.6-14.8) Platelet Count 149 K/UL (150-450) L Mean Platelet Volume 8.7 FL (6.5-10.1) Neutrophils (%) (Auto) 84.9 % (45.0-75.0) H Lymphocytes (%) (Auto) 10.5 % (20.0-45.0) L Monocytes (%) (Auto) 3.3 % (1.0-10.0) Eosinophils (%) (Auto) 0.6 % (0.0-3.0) Basophils (%) (Auto) 0.7 % (0.0-2.0) Microbiology Date/Time Source Procedure Growth Status 10/19/16 00:08 Nasal Nares MRSA Culture - Final NO METHICILLIN RESISTANT STAPH AUREUS... Complete 10/19/16 00:08 Rectum VRE Culture - Final NO VANCOMYCIN RESISTANT ENTEROCOCCUS ... Complete JENNIFER SUTTON Oct 21, 2016 08:31
--- NOTE | 2016-10-21 08:40 | Cardiology Progress Note ---
Assessment/Plan Assessment/Plan 1. Chest pain. 2. Coronary syndrome, now unlikely. 3. Hypertension history. 4. Hyperlipidemia history. 5. Bradycardia, possibly vagal related. 6. head ache 7. recurrent nausea vomiting 8. diaphoresis episodes all trop remain neg even tod ay echo not yet done no pain nwo tranfer to tele stress cardiolite in am i am avoiding adenosine due to madison madison is just sinus no pauses home if stress test is ok not clear to me why he has genevieve bout of diaphoresis at admission and now will send out plama metanephrines to help evaluate for pheochromocytoma ? he will need to see md in future for fu on resutl , i have explaiend that to him with one our amharic speaking rn he indicated understand thsoe result take some tome to become avialabel Subjective Subjective he apparentlty had palpitation an chest pressure and diaphorris got iv morphine an iv ntg he was anxious they requested anxiety med xnanax gi aguilar he feel fine now Objective Last 24 Hour Vital Signs Date Time Temp Pulse Resp B/P Pulse Ox O2 Delivery O2 Flow Rate FiO2 10/21/16 07:47 61 16 Nasal Cannula 2.0 28 10/21/16 07:46 98 Nasal Cannula 2.0 28 10/21/16 07:46 Nasal Cannula 2.0 28 10/21/16 06:00 66 18 144/88 98 Nasal Cannula 2.0 10/21/16 05:06 80 16 132/88 98 Nasal Cannula 2.0 10/21/16 04:00 75 10/21/16 04:00 97.5 75 16 129/83 97 Nasal Cannula 2.0 10/21/16 03:09 61 16 131/79 97 Nasal Cannula 2.0 10/21/16 02:00 65 16 115/72 98 Nasal Cannula 2.0 10/21/16 01:00 55 18 124/68 99 Nasal Cannula 2.0 10/21/16 00:00 52 10/21/16 00:00 97.0 70 18 108/64 99 Nasal Cannula 2.0 10/20/16 23:56 166/69 10/20/16 23:02 89 17 166/92 98 Nasal Cannula 2.0 10/20/16 22:09 167/93 10/20/16 22:00 69 16 167/82 97 Nasal Cannula 2.0 10/20/16 21:00 58 16 158/79 98 Nasal Cannula 2.0 10/20/16 20:17 49 16 Room Air 21 10/20/16 20:16 96 Room Air 21 10/20/16 20:16 Room Air 10/20/16 20:00 59 10/20/16 20:00 97.4 58 17 151/94 98 Nasal Cannula 2.0 10/20/16 19:54 174/94 10/20/16 19:54 64 174/94 10/20/16 19:00 56 16 174/94 98 Nasal Cannula 2.0 10/20/16 18:00 61 18 168/95 98 Nasal Cannula 2.0 10/20/16 17:42 175/97 10/20/16 17:00 98.1 51 18 164/97 98 Nasal Cannula 2.0 10/20/16 16:15 53 10/20/16 16:00 59 18 170/101 98 Nasal Cannula 2.0 10/20/16 15:00 55 18 157/87 98 Nasal Cannula 2.0 10/20/16 14:00 51 11 177/96 98 Nasal Cannula 2.0 10/20/16 13:00 49 20 179/97 98 Nasal Cannula 2.0 10/20/16 12:16 50 10/20/16 12:00 97.0 48 18 178/89 98 Nasal Cannula 2.0 10/20/16 11:00 50 20 168/88 98 Nasal Cannula 2.0 10/20/16 10:00 52 20 165/85 99 Nasal Cannula 2.0 10/20/16 09:18 174/95 10/20/16 09:17 174/95 10/20/16 09:00 97.2 51 20 174/95 95 Nasal Cannula 2.0 Intake and Output 10/20/16 10/21/16 19:00 07:00 Intake Total 850 ml Output Total 2180 ml 1000 ml Balance -1330 ml -1000 ml Intake Oral 850 ml Output Urine Total 2180 ml 1000 ml # Bowel Movements 2 Laboratory Tests Test 10/21/16 00:45 10/21/16 05:25 Troponin I < 0.30 ng/mL (<=0.30) White Blood Count 8.6 K/UL (4.8-10.8) Red Blood Count 5.17 M/UL (4.70-6.10) Hemoglobin 16.0 G/DL (14.2-18.0) Hematocrit 48.1 % (42.0-52.0) Mean Corpuscular Volume 93 FL (80-99) Mean Corpuscular Hemoglobin 31.1 PG (27.0-31.0) H Mean Corpuscular Hemoglobin Concent 33.3 G/DL (32.0-36.0) Red Cell Distribution Width 12.0 % (11.6-14.8) Platelet Count 149 K/UL (150-450) L Mean Platelet Volume 8.7 FL (6.5-10.1) Neutrophils (%) (Auto) 84.9 % (45.0-75.0) H Lymphocytes (%) (Auto) 10.5 % (20.0-45.0) L Monocytes (%) (Auto) 3.3 % (1.0-10.0) Eosinophils (%) (Auto) 0.6 % (0.0-3.0) Basophils (%) (Auto) 0.7 % (0.0-2.0) Microbiology Date/Time Source Procedure Growth Status 10/19/16 00:08 Nasal Nares MRSA Culture - Final NO METHICILLIN RESISTANT STAPH AUREUS... Complete 10/19/16 00:08 Rectum VRE Culture - Final NO VANCOMYCIN RESISTANT ENTEROCOCCUS ... Complete JENNIFER SUTTON Oct 21, 2016 08:40
[2016-10-21] MEDS: Losartan 50mg tab ORAL SCH (09:11)
--- NOTE | 2016-10-21 09:34 | Pulmonolgy Critical Care Note ---
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, 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 crisis - Objective Last 24 Hour Vital Signs Date Time Temp Pulse Resp B/P Pulse Ox O2 Delivery O2 Flow Rate FiO2 10/21/16 09:12 78 171/98 10/21/16 09:11 171/98 10/21/16 07:47 61 16 Nasal Cannula 2.0 28 10/21/16 07:46 98 Nasal Cannula 2.0 28 10/21/16 07:46 Nasal Cannula 2.0 28 10/21/16 06:00 66 18 144/88 98 Nasal Cannula 2.0 10/21/16 05:06 80 16 132/88 98 Nasal Cannula 2.0 10/21/16 04:00 75 10/21/16 04:00 97.5 75 16 129/83 97 Nasal Cannula 2.0 10/21/16 03:09 61 16 131/79 97 Nasal Cannula 2.0 10/21/16 02:00 65 16 115/72 98 Nasal Cannula 2.0 10/21/16 01:00 55 18 124/68 99 Nasal Cannula 2.0 10/21/16 00:00 52 10/21/16 00:00 97.0 70 18 108/64 99 Nasal Cannula 2.0 10/20/16 23:56 166/69 10/20/16 23:02 89 17 166/92 98 Nasal Cannula 2.0 10/20/16 22:09 167/93 10/20/16 22:00 69 16 167/82 97 Nasal Cannula 2.0 10/20/16 21:00 58 16 158/79 98 Nasal Cannula 2.0 10/20/16 20:17 49 16 Room Air 21 10/20/16 20:16 96 Room Air 21 10/20/16 20:16 Room Air 10/20/16 20:00 59 10/20/16 20:00 97.4 58 17 151/94 98 Nasal Cannula 2.0 10/20/16 19:54 174/94 10/20/16 19:54 64 174/94 10/20/16 19:00 56 16 174/94 98 Nasal Cannula 2.0 10/20/16 18:00 61 18 168/95 98 Nasal Cannula 2.0 10/20/16 17:42 175/97 10/20/16 17:00 98.1 51 18 164/97 98 Nasal Cannula 2.0 10/20/16 16:15 53 10/20/16 16:00 59 18 170/101 98 Nasal Cannula 2.0 10/20/16 15:00 55 18 157/87 98 Nasal Cannula 2.0 10/20/16 14:00 51 11 177/96 98 Nasal Cannula 2.0 10/20/16 13:00 49 20 179/97 98 Nasal Cannula 2.0 10/20/16 12:16 50 10/20/16 12:00 97.0 48 18 178/89 98 Nasal Cannula 2.0 10/20/16 11:00 50 20 168/88 98 Nasal Cannula 2.0 10/20/16 10:00 52 20 165/85 99 Nasal Cannula 2.0 Status: awake Condition: critical, grave HEENT: atraumatic Lungs: clear, chest wall tender Heart: HR/BP stable Abdomen: soft, non-tender Extremities: no C/C/E, edema Micro: Microbiology Date/Time Source Procedure Growth Status 10/19/16 00:08 Nasal Nares MRSA Culture - Final NO METHICILLIN RESISTANT STAPH AUREUS... Complete 10/19/16 00:08 Rectum VRE Culture - Final NO VANCOMYCIN RESISTANT ENTEROCOCCUS ... Complete Critical Care - Subjective ICU Day: 3 Interval Events: episodes of diaphoresis FI02: 28 I&O: Intake and Output 10/20/16 10/21/16 19:00 07:00 Intake Total 850 ml Output Total 2180 ml 1000 ml Balance -1330 ml -1000 ml Intake Oral 850 ml Output Urine Total 2180 ml 1000 ml # Bowel Movements 2 CXR: no change Labs: Laboratory Tests Test 10/21/16 00:45 10/21/16 05:25 Troponin I < 0.30 ng/mL (<=0.30) White Blood Count 8.6 K/UL (4.8-10.8) Red Blood Count 5.17 M/UL (4.70-6.10) Hemoglobin 16.0 G/DL (14.2-18.0) Hematocrit 48.1 % (42.0-52.0) Mean Corpuscular Volume 93 FL (80-99) Mean Corpuscular Hemoglobin 31.1 PG (27.0-31.0) H Mean Corpuscular Hemoglobin Concent 33.3 G/DL (32.0-36.0) Red Cell Distribution Width 12.0 % (11.6-14.8) Platelet Count 149 K/UL (150-450) L Mean Platelet Volume 8.7 FL (6.5-10.1) Neutrophils (%) (Auto) 84.9 % (45.0-75.0) H Lymphocytes (%) (Auto) 10.5 % (20.0-45.0) L Monocytes (%) (Auto) 3.3 % (1.0-10.0) Eosinophils (%) (Auto) 0.6 % (0.0-3.0) Basophils (%) (Auto) 0.7 % (0.0-2.0) MINERVA RENTERIA Oct 21, 2016 09:34
[2016-10-21] MEDS ORDERED: Enalaprilat 2.5mg/2ml Inj IV PRN (15:00)
[2016-10-21] MEDS ORDERED: Miralax 17gm pkt ORAL PRN (15:00)
[2016-10-21] MEDS ORDERED: DuoNeb 0.5-3(2.5)mg/3ml neb HHN PRN (15:00)
--- NOTE | 2016-10-21 15:36 | Diagnostic Imaging Report ---
Indication: chest pain Technique: The study was conducted under the supervision of a teletype mechanic. 10.1 mCi of technetium 99m Myoview was intravenously administered. Three plane SPECT imaging of the heart was then performed at rest. The teletype mechanic canceled the stress portion of the examination due to clinical reasons. Comparison: None Clinical data: SPECT imaging shows normal myocardial perfusion. No perfusion defects demonstrated. Impression: Negative resting Myoview SPECT imaging
[2016-10-22 00:36] VITALS: BP 145/99
[2016-10-22 04:18] VITALS: BP 136/88
[2016-10-22 07:15] LABS: BASOPHILS % (AUTO) 0.8 % (0.0-2.0); EOSINOPHILS % (AUTO) 4.4 % (0.0-3.0); LYMPHOCYTES % (AUTO) 26.9 % (20.0-45.0); MEAN CORPUSCULAR HEMOGLOBIN 31.3 PG (27.0-31.0); MEAN CORPUSCULAR HGB CONC 33.8 G/DL (32.0-36.0); MEAN CORPUSCULAR VOLUME 93 FL (80-99); MEAN PLATELET VOLUME 8.5 FL (6.5-10.1); MONOCYTES % (AUTO) 5.2 % (1.0-10.0); NEUTROPHILS % (AUTO) 62.6 % (45.0-75.0); PLATELET COUNT 157 K/UL (150-450); RED BLOOD COUNT 5.41 M/UL (4.70-6.10); RED CELL DISTRIBUTION WIDTH 11.9 % (11.6-14.8); WHITE BLOOD COUNT 8.4 K/UL (4.8-10.8)
[2016-10-22 07:47] VITALS: BP 159/97
[2016-10-22 07:58] LABS: ALANINE AMINOTRANSFERASE 12 U/L (3-41); ALBUMIN/GLOBULIN RATIO 1.6 (1.0-2.7); ANION GAP 18 (5-15); ASPARTATE AMINO TRANSFERASE 15 U/L (5-40); CALCIUM 9.2 mg/dL (8.6-10.2); CARBON DIOXIDE 22 mEQ/L (20-30); CHLORIDE 99 mEQ/L (98-107); CREATININE 1.1 mg/dL (0.7-1.2); GLOMERULAR FILTRATION RATE > 60 mL/min (>60); HEMOLYSIS 11; PHOSPHORUS 3.4 mg/dL (2.5-4.8); POTASSIUM 3.9 mEQ/L (3.4-4.9); SODIUM 139 mEQ/L (135-145); TOTAL PROTEIN 6.9 g/dL (6.6-8.7)
[2016-10-22] MEDS: Aspirin Baby 81mg ORAL SCH (08:39)
[2016-10-22] MEDS: Losartan 50mg tab ORAL SCH (08:40)
[2016-10-22] MEDS ORDERED: Influenza Virus Vaccine 0.5ml IM ONE (09:00)
[2016-10-22 11:31] VITALS: BP 147/96
--- NOTE | 2016-10-22 12:08 | Pulmonology Progress Note ---
Assessment/Plan Problems: (1) ACS (acute coronary syndrome) (2) Bradycardia (3) Hypokalemia (4) Hypertension Assessment/Plan bp better awaiting cardiology recommendation about plan of care. keep in teli Subjective ROS Limited/Unobtainable: No Interval Events: comfortable, bp better Allergies: Coded Allergies: No Known Allergies (Unverified , 10/18/16) Objective Last 24 Hour Vital Signs Date Time Temp Pulse Resp B/P Pulse Ox O2 Delivery O2 Flow Rate FiO2 10/22/16 11:31 96.5 68 20 147/96 98 Room Air 10/22/16 08:40 159/97 10/22/16 08:39 86 159/97 10/22/16 08:00 77 10/22/16 07:47 97.9 59 20 159/97 98 Nasal Cannula 2.0 10/22/16 06:56 98 Nasal Cannula 2.0 10/22/16 06:55 Nasal Cannula 2.0 10/22/16 04:18 98.7 65 21 136/88 95 Nasal Cannula 2.0 10/22/16 04:00 60 10/22/16 00:36 97.9 77 20 145/99 97 Nasal Cannula 2.0 10/22/16 00:00 65 10/21/16 20:00 67 10/21/16 20:00 97.9 91 18 157/106 Nasal Cannula 2.0 97 10/21/16 19:00 Nasal Cannula 2.0 28 10/21/16 19:00 63 16 Nasal Cannula 2.0 28 10/21/16 19:00 98 Nasal Cannula 2.0 28 10/21/16 16:00 97.9 85 18 150/79 Nasal Cannula 2.0 98 10/21/16 16:00 73 10/21/16 15:11 97.9 65 20 148/55 98 Nasal Cannula 2.0 10/21/16 15:00 57 18 151/63 99 Nasal Cannula 2.0 10/21/16 14:00 63 19 161/58 99 Nasal Cannula 2.0 Intake and Output 10/21/16 10/22/16 19:00 07:00 Intake Total 250 ml Output Total 1250 ml 500 ml Balance -1000 ml -500 ml Intake Oral 250 ml Output Urine Total 1250 ml 500 ml General Appearance: WD/WN HEENT: normocephalic, atraumatic Respiratory/Chest: chest wall non-tender, lungs clear Cardiovascular: normal peripheral pulses, normal rate Abdomen: normal bowel sounds, soft, non tender Skin: no rash 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1, Estimat Glomerular Filtration Rate > 60, Glucose Level 95, Calcium Level 9.2, Phosphorus Level 3.4, Magnesium Level 2.0, Total Bilirubin 1.0, Aspartate Amino Transf (AST/SGOT) 15, Alanine Aminotransferase (ALT/SGPT) 12, Alkaline Phosphatase 58, Total Protein 6.9, Albumin 4.3, Globulin 2.6, Albumin/Globulin Ratio 1.6 Current Medications Medications (Trade) Dose Ordered Sig/Yang Route PRN Reason Start Time Stop Time Status Last Admin Dose Admin Acetaminophen (Tylenol) 650 mg Q4H PRN ORAL T>100.5 10/21/16 15:00 11/20/16 14:59 Albuterol/ Ipratropium (DuoNeb 0.5-3(2.5)mg/3ml) 3 ml Q4H PRN HHN Shortness of Breath 10/21/16 15:00 10/26/16 14:59 Alprazolam (Xanax) 0.5 mg QHS PRN ORAL For Anxiety 10/21/16 21:00 10/28/16 20:59 Amlodipine Besylate (Norvasc) 10 mg DAILY ORAL 10/22/16 09:00 11/21/16 08:59 10/22/16 08:39 Aspirin (ASA) 162 mg DAILY ORAL 10/22/16 09:00 11/21/16 08:59 10/22/16 08:39 Enalaprilat (Vasotec) 2.5 mg Q6H PRN IV sbp more than 160 10/21/16 15:00 11/20/16 14:59 Hydralazine HCl (Apresoline) 10 mg Q4H PRN IV sbp greater than 160 10/21/16 15:00 11/20/16 14:59 Influenza Virus Vaccine (Flu Vaccine) 0.5 ml ONCE ONCE IM 10/22/16 09:00 10/22/16 09:01 UNV Losartan Potassium (Cozaar) 100 mg DAILY ORAL 10/22/16 09:00 11/21/16 08:59 10/22/16 08:40 Ondansetron HCl (Zofran) 4 mg Q6H PRN IVP Nausea & Vomiting 10/21/16 15:00 11/20/16 14:59 Pantoprazole (Protonix) 40 mg DAILY ORAL 10/22/16 09:00 11/21/16 08:59 10/22/16 08:38 Polyethylene Glycol (Miralax) 17 gm DAILYPRN PRN ORAL Constipation 10/21/16 15:00 11/20/16 14:59 MINERVA RENTERIA Oct 22, 2016 12:08
[2016-10-22 16:00] VITALS: BP_SYST 137; BP_DIAS 57; BP_DIAS 97
--- NOTE | 2016-10-22 16:49 | Cardiology Progress Note ---
Assessment/Plan Status: doing well, stable Status Narrative HTN- ? secondary cause studies sent per Dr. Stephens to r/o pheo. CP - ? demand ischemia. Stress nuclear study negative for ischemia during this adm Bradycardia - resolved ? sick sinus vs vagal response Assessment/Plan Continue amlodipine, losartan. Will add hctz for better bp control Avoid b jessica/ alpha- beta jessica in view of previous bradycardia Urine studies pending - r/o pheo ? renal imaging to r/o renovascular htn Subjective ROS Limited/Unobtainable: No Subjective No chest pain or dyspnea Objective Last 24 Hour Vital Signs Date Time Temp Pulse Resp B/P Pulse Ox O2 Delivery O2 Flow Rate FiO2 10/22/16 12:00 75 10/22/16 11:31 96.5 68 20 147/96 98 Room Air 10/22/16 08:40 159/97 10/22/16 08:39 86 159/97 10/22/16 08:00 77 10/22/16 07:47 97.9 59 20 159/97 98 Nasal Cannula 2.0 10/22/16 06:57 73 20 2.0 10/22/16 06:56 98 Nasal Cannula 2.0 10/22/16 06:55 Nasal Cannula 2.0 10/22/16 04:18 98.7 65 21 136/88 95 Nasal Cannula 2.0 10/22/16 04:00 60 10/22/16 00:36 97.9 77 20 145/99 97 Nasal Cannula 2.0 10/22/16 00:00 65 10/21/16 20:00 67 10/21/16 20:00 97.9 91 18 157/106 Nasal Cannula 2.0 97 10/21/16 19:00 Nasal Cannula 2.0 28 10/21/16 19:00 63 16 Nasal Cannula 2.0 28 10/21/16 19:00 98 Nasal Cannula 2.0 28 General Appearance: WD/WN, no apparent distress, alert Neck: supple, no JVD Rhythm: NSR Cardiovascular: normal rate, regular rhythm, no gallop/murmur, gallop/S4 Respiratory/Chest: lungs clear Abdomen: non tender, soft Extremities: no swelling Intake and Output 10/21/16 10/22/16 19:00 07:00 Intake Total 250 ml Output Total 1250 ml 500 ml Balance -1000 ml -500 ml Intake Oral 250 ml Output Urine Total 1250 ml 500 ml Laboratory Tests Test 10/22/16 06:00 White Blood Count 8.4 K/UL (4.8-10.8) Red Blood Count 5.41 M/UL (4.70-6.10) Hemoglobin 16.9 G/DL (14.2-18.0) Hematocrit 50.1 % (42.0-52.0) Mean Corpuscular Volume 93 FL (80-99) Mean Corpuscular Hemoglobin 31.3 PG (27.0-31.0) H Mean Corpuscular Hemoglobin Concent 33.8 G/DL (32.0-36.0) Red Cell Distribution Width 11.9 % (11.6-14.8) Platelet Count 157 K/UL (150-450) Mean Platelet Volume 8.5 FL (6.5-10.1) Neutrophils (%) (Auto) 62.6 % (45.0-75.0) Lymphocytes (%) (Auto) 26.9 % (20.0-45.0) Monocytes (%) (Auto) 5.2 % (1.0-10.0) Eosinophils (%) (Auto) 4.4 % (0.0-3.0) H Basophils (%) (Auto) 0.8 % (0.0-2.0) Sodium Level 139 mEQ/L (135-145) Potassium Level 3.9 mEQ/L (3.4-4.9) Chloride Level 99 mEQ/L (98-107) Carbon Dioxide Level 22 mEQ/L (20-30) Anion Gap 18 (5-15) H Blood Urea Nitrogen 19 mg/dL (7-23) Creatinine 1.1 mg/dL (0.7-1.2) Estimat Glomerular Filtration Rate > 60 mL/min (>60) Glucose Level 95 mg/dL (74-106) Calcium Level 9.2 mg/dL (8.6-10.2) Phosphorus Level 3.4 mg/dL (2.5-4.8) Magnesium Level 2.0 mg/dL (1.7-2.5) Total Bilirubin 1.0 mg/dL (0.0-1.2) Aspartate Amino Transf (AST/SGOT) 15 U/L (5-40) Alanine Aminotransferase (ALT/SGPT) 12 U/L (3-41) Alkaline Phosphatase 58 U/L (40-129) Total Protein 6.9 g/dL (6.6-8.7) Albumin 4.3 g/dL (3.5-5.2) Globulin 2.6 g/dL Albumin/Globulin Ratio 1.6 (1.0-2.7) DIANA NEELY Oct 22, 2016 16:49
[2016-10-22 20:00] VITALS: BP 161/110
[2016-10-23 00:31] VITALS: BP 145/104
[2016-10-23 04:15] VITALS: BP 148/84
[2016-10-23 08:33] VITALS: BP 165/90
[2016-10-23] MEDS: Aspirin Baby 81mg ORAL SCH (08:46)
[2016-10-23] MEDS: Losartan 50mg tab ORAL SCH (08:48)
[2016-10-23 11:45] VITALS: BP 156/96
--- NOTE | 2016-10-23 12:10 | Pulmonology Progress Note ---
Assessment/Plan Problems: (1) ACS (acute coronary syndrome) (2) Bradycardia (3) Hypokalemia (4) Hypertension Assessment/Plan bp better Continue amlodipine, losartan. added hctz for better bp control awaiting cardiology recommendation about plan of care. keep in teli Subjective ROS Limited/Unobtainable: No Constitutional: Reports: no symptoms HEENT: Repors: no symptoms Respiratory: Reports: no symptoms Cardiovascular: Reports: no symptoms Gastrointestinal/Abdominal: Reports: no symptoms Allergies: Coded Allergies: No Known Allergies (Unverified , 10/18/16) Objective Last 24 Hour Vital Signs Date Time Temp Pulse Resp B/P Pulse Ox O2 Delivery O2 Flow Rate FiO2 10/23/16 11:45 97.2 62 18 156/96 97 Room Air 10/23/16 08:48 165/98 10/23/16 08:47 98 165/90 10/23/16 08:33 97.5 104 18 165/90 96 Room Air 10/23/16 08:00 89 10/23/16 07:05 Room Air 21 10/23/16 07:05 98 Room Air 21 10/23/16 07:05 86 16 Room Air 21 10/23/16 04:15 98.8 86 20 148/84 95 Room Air 10/23/16 04:00 65 10/23/16 00:31 97.9 74 21 145/104 95 Room Air 10/23/16 00:00 69 10/22/16 20:00 76 10/22/16 20:00 94.3 91 18 161/110 98 Room Air 10/22/16 19:12 Room Air 10/22/16 19:12 75 18 Room Air 10/22/16 19:12 97 Room Air 10/22/16 16:00 97.9 73 18 137/97 98 Room Air 10/22/16 16:00 69 10/22/16 16:00 97.9 73 20 137/57 96 Room Air Intake and Output 10/22/16 10/23/16 19:00 07:00 Intake Total 490 ml 480 ml Balance 490 ml 480 ml Intake Oral 490 ml 480 ml # Voids 3 1 General Appearance: WD/WN HEENT: normocephalic, atraumatic Respiratory/Chest: chest wall non-tender, lungs clear Abdomen: normal bowel sounds, soft, non tender Current Medications Medications (Trade) Dose Ordered Sig/Yang Route PRN Reason Start Time Stop Time Status Last Admin Dose Admin Acetaminophen (Tylenol) 650 mg Q4H PRN ORAL T>100.5 10/21/16 15:00 11/20/16 14:59 Albuterol/ Ipratropium (DuoNeb 0.5-3(2.5)mg/3ml) 3 ml Q4H PRN HHN Shortness of Breath 10/21/16 15:00 10/26/16 14:59 Alprazolam (Xanax) 0.5 mg QHS PRN ORAL For Anxiety 10/21/16 21:00 10/28/16 20:59 Amlodipine Besylate (Norvasc) 10 mg DAILY ORAL 10/22/16 09:00 11/21/16 08:59 10/23/16 08:47 Aspirin (ASA) 162 mg DAILY ORAL 10/22/16 09:00 11/21/16 08:59 10/23/16 08:46 Enalaprilat (Vasotec) 2.5 mg Q6H PRN IV sbp more than 160 10/21/16 15:00 11/20/16 14:59 Hydralazine HCl (Apresoline) 10 mg Q4H PRN IV sbp greater than 160 10/21/16 15:00 11/20/16 14:59 Hydrochlorothiazide (Hydrodiuril) 12.5 mg DAILY ORAL 10/23/16 09:00 11/22/16 08:59 10/23/16 08:46 Losartan Potassium (Cozaar) 100 mg DAILY ORAL 10/22/16 09:00 11/21/16 08:59 10/23/16 08:48 Ondansetron HCl (Zofran) 4 mg Q6H PRN IVP Nausea & Vomiting 10/21/16 15:00 11/20/16 14:59 Pantoprazole (Protonix) 40 mg DAILY ORAL 10/22/16 09:00 11/21/16 08:59 10/23/16 08:46 Polyethylene Glycol (Miralax) 17 gm DAILYPRN PRN ORAL Constipation 10/21/16 15:00 11/20/16 14:59 MINERVA RENTERIA Oct 23, 2016 12:10
--- NOTE | 2016-10-23 15:00 | Cardiology Progress Note ---
Assessment/Plan Status: stable, progressing Status Narrative HTN- ? secondary cause studies sent per Dr. Stephens to r/o pheo. BP remains elevated, on norvasc, losartan and hct CP - ? demand ischemia. Stress nuclear study not completed (only resting portion - normal) Bradycardia - resolved ? sick sinus vs vagal response Assessment/Plan Continue amlodipine, losartan. increase hctz and add low dose b jessica for better bp control Will give low dose b jessica, as hx of bradycardia during this adm - may have been due to vagal response. Pt now tachycardic w/ ambulation. ? stress test - will d/w Dr. Stephens Subjective ROS Limited/Unobtainable: No Subjective Pt without c/o. Noted to be tachycardic w/ walking. Objective Last 24 Hour Vital Signs Date Time Temp Pulse Resp B/P Pulse Ox O2 Delivery O2 Flow Rate FiO2 10/23/16 11:45 97.2 62 18 156/96 97 Room Air 10/23/16 08:48 165/98 10/23/16 08:47 98 165/90 10/23/16 08:33 97.5 104 18 165/90 96 Room Air 10/23/16 08:00 89 10/23/16 07:05 Room Air 21 10/23/16 07:05 98 Room Air 21 10/23/16 07:05 86 16 Room Air 21 10/23/16 04:15 98.8 86 20 148/84 95 Room Air 10/23/16 04:00 65 10/23/16 00:31 97.9 74 21 145/104 95 Room Air 10/23/16 00:00 69 10/22/16 20:00 76 10/22/16 20:00 94.3 91 18 161/110 98 Room Air 10/22/16 19:12 Room Air 10/22/16 19:12 75 18 Room Air 10/22/16 19:12 97 Room Air 10/22/16 16:00 97.9 73 18 137/97 98 Room Air 10/22/16 16:00 69 10/22/16 16:00 97.9 73 20 137/57 96 Room Air General Appearance: WD/WN, no apparent distress, alert EENT: PERRL/EOMI Neck: supple, no JVD Rhythm: NSR Cardiovascular: normal rate, regular rhythm, no gallop/murmur Respiratory/Chest: lungs clear Abdomen: non tender, soft, no mass Extremities: no swelling Intake and Output 10/22/16 10/23/16 19:00 07:00 Intake Total 490 ml 480 ml Balance 490 ml 480 ml Intake Oral 490 ml 480 ml # Voids 3 1 DIANA NEELY Oct 23, 2016 15:00
[2016-10-23 16:00] VITALS: BP 149/98
[2016-10-23 20:00] VITALS: BP 155/110
[2016-10-23] MEDS: Metoprolol Tartrate 12.5mg TAB ORAL SCH (20:47)
[2016-10-24 00:16] VITALS: BP 146/96
[2016-10-24 04:12] VITALS: BP 142/94
[2016-10-24 08:00] VITALS: BP 148/100
[2016-10-24 08:11] LABS: ANION GAP 20 (5-15); CALCIUM 9.7 mg/dL (8.6-10.2); CARBON DIOXIDE 23 mEQ/L (20-30); CHLORIDE 98 mEQ/L (98-107); GLOMERULAR FILTRATION RATE > 60 mL/min (>60); HEMOLYSIS 8; POTASSIUM 4.3 mEQ/L (3.4-4.9); SODIUM 141 mEQ/L (135-145)
[2016-10-24] MEDS: Metoprolol Tartrate 12.5mg TAB ORAL SCH ×3 (09:00→20:52)
[2016-10-24] MEDS: Aspirin Baby 81mg ORAL SCH (09:30)
[2016-10-24] MEDS: Losartan 50mg tab ORAL SCH (09:31)
--- NOTE | 2016-10-24 10:13 | Pulmonology Progress Note ---
Assessment/Plan Problems: (1) ACS (acute coronary syndrome) (2) Bradycardia (3) Hypokalemia (4) Hypertension Assessment/Plan bp better Continue amlodipine, losartan. added hctz for better bp control awaiting cardiology recommendation about plan of care. keep in teli had episodes of tachycardia only resting phase of the stress study was done. Subjective ROS Limited/Unobtainable: No Allergies: Coded Allergies: No Known Allergies (Unverified , 10/18/16) Objective Last 24 Hour Vital Signs Date Time Temp Pulse Resp B/P Pulse Ox O2 Delivery O2 Flow Rate FiO2 10/24/16 09:31 148/100 10/24/16 09:30 94 148/100 10/24/16 09:00 94 148/100 10/24/16 08:00 96.5 101 17 148/100 99 Room Air 112 10/24/16 07:52 Room Air 10/24/16 07:51 99 Room Air 10/24/16 07:50 100 16 Room Air 10/24/16 04:12 98.6 78 21 142/94 98 Room Air 10/24/16 04:00 65 10/24/16 00:16 97.3 64 20 146/96 94 Room Air 10/24/16 00:00 60 10/23/16 20:47 87 132/102 10/23/16 20:00 82 10/23/16 20:00 98.4 89 19 155/110 100 Room Air 10/23/16 19:30 98 Room Air 10/23/16 19:30 Room Air 10/23/16 19:30 80 16 Room Air 10/23/16 16:00 72 10/23/16 16:00 97.5 78 20 149/98 98 Room Air 10/23/16 12:00 68 10/23/16 11:45 97.2 62 18 156/96 97 Room Air Intake and Output 10/23/16 10/24/16 19:00 07:00 Intake Total 480 ml Balance 480 ml Intake Oral 480 ml # Voids 2 # Bowel Movements 2 General Appearance: WD/WN HEENT: normocephalic, atraumatic, anicteric Respiratory/Chest: chest wall non-tender, lungs clear Cardiovascular: normal peripheral pulses, normal rate Abdomen: normal bowel sounds, soft, non tender Laboratory Tests 10/24/16 06:25: Sodium Level 141, Potassium Level 4.3, Chloride Level 98, Carbon Dioxide Level 23, Anion Gap 20H, Blood Urea Nitrogen 21, Creatinine 1.0, Estimat Glomerular Filtration Rate > 60, Glucose Level 106, Calcium Level 9.7 Current Medications Medications (Trade) Dose Ordered Sig/Yang Route PRN Reason Start Time Stop Time Status Last Admin Dose Admin Acetaminophen (Tylenol) 650 mg Q4H PRN ORAL T>100.5 10/21/16 15:00 11/20/16 14:59 Albuterol/ Ipratropium (DuoNeb 0.5-3(2.5)mg/3ml) 3 ml Q4H PRN HHN Shortness of Breath 10/21/16 15:00 10/26/16 14:59 Alprazolam (Xanax) 0.5 mg QHS PRN ORAL For Anxiety 10/21/16 21:00 10/28/16 20:59 Amlodipine Besylate (Norvasc) 10 mg DAILY ORAL 10/22/16 09:00 11/21/16 08:59 10/24/16 09:30 Aspirin (ASA) 162 mg DAILY ORAL 10/22/16 09:00 11/21/16 08:59 10/24/16 09:30 Enalaprilat (Vasotec) 2.5 mg Q6H PRN IV sbp more than 160 10/21/16 15:00 11/20/16 14:59 Hydralazine HCl (Apresoline) 10 mg Q4H PRN IV sbp greater than 160 10/21/16 15:00 11/20/16 14:59 Hydrochlorothiazide (Hydrodiuril) 25 mg DAILY ORAL 10/24/16 09:00 11/23/16 08:59 10/24/16 09:00 Losartan Potassium (Cozaar) 100 mg DAILY ORAL 10/22/16 09:00 11/21/16 08:59 10/24/16 09:31 Metoprolol Tartrate (Lopressor) 12.5 mg Q12HR ORAL 10/23/16 21:00 11/22/16 20:59 10/23/16 20:47 Ondansetron HCl (Zofran) 4 mg Q6H PRN IVP Nausea & Vomiting 10/21/16 15:00 11/20/16 14:59 Pantoprazole (Protonix) 40 mg DAILY ORAL 10/22/16 09:00 11/21/16 08:59 10/24/16 09:31 Polyethylene Glycol (Miralax) 17 gm DAILYPRN PRN ORAL Constipation 10/21/16 15:00 11/20/16 14:59 MINERVA RENTERIA Oct 24, 2016 10:13
[2016-10-24 12:00] VITALS: BP 125/86
[2016-10-24 16:00] VITALS: BP 132/98
--- NOTE | 2016-10-24 16:25 | Diagnostic Imaging Report ---
Indications: Chest pain Technique: Resting study performed and reported previously. Patient underwent treadmill stress testing. See cardiology report for details. During adenosine infusion, IV administration 30.5 mCi 99 M technetium Myoview. SPECT and planar images obtained. SPECT images gated to 8 phases of the cardiac cycle were also obtained, and reformatted into cine images for evaluation of ejection fraction. Comparison: Procedure resting study dated 10/20/2016 Findings: Patient achieved a peak heart rate 155 beats for minute, in excess of the target heart rate of 135 beats for minute. Per cardiology report, patient experienced no symptoms. Per cardiology report, resting EKG demonstrates sinus tachycardia, right atrial enlargement, and left axis deviation. No significant ST-T wave changes were recorded during exercise. Imaging demonstrates normal post stress perfusion, no fixed nor reversible perfusion defects. Normal cardiac chamber size. Calculated post stress ejection fraction 55%. No focal wall motion abnormality Impression: Nonischemic clinical response to pharmacologic stress, per cardiology report Nonischemic electrocardiographic response to pharmacologic stress, per cardiology report No imaging findings to suggest ischemia, at level of stress achieved. Calculated post stress ejection fraction 55%
--- NOTE | 2016-10-24 19:25 | Cardiology Report ---
APPROVED REPORT EKG Measurement Heart [id number] OR [id number] Sinus bradycardia Septal infarct, age undetermined Abnormal ECG
[2016-10-24 20:00] VITALS: BP 145/110
--- NOTE | 2016-10-24 20:04 | Cardiology Progress Note ---
Assessment/Plan Assessment/Plan 1. Chest pain. 2. Coronary syndrome, now unlikely. 3. Hypertension history. 4. Hyperlipidemia history. 5. Bradycardia, possibly vagal related. 6. head ache 7. recurrent nausea vomiting 8. diaphoresis episodes all trop remain neg even tod ay home in am stress test neg not clear to me why he has genevieve bout of diaphoresis at admission and now will send out plama metanephrines to help evaluate for pheochromocytoma ? he will need to see md in future for fu on resutl , i have explaiend that to him with one our telugu speaking rn he indicated understand thsoe result take some tome to become avialabel dc cozaar jannyh to acei in am prior to dc home Subjective Cardiovascular: Denies: lightheadedness Respiratory: Denies: shortness of breath Gastrointestinal/Abdominal: Denies: abdomen distended Genitourinary: Denies: burning Subjective no left sided cp Objective Last 24 Hour Vital Signs Date Time Temp Pulse Resp B/P Pulse Ox O2 Delivery O2 Flow Rate FiO2 10/24/16 16:00 70 10/24/16 16:00 97.9 73 21 132/98 95 Room Air 10/24/16 13:32 109 130/86 10/24/16 13:16 109 10/24/16 12:00 75 10/24/16 12:00 96.9 94 18 125/86 97 Room Air 95 10/24/16 09:31 148/100 10/24/16 09:30 94 148/100 10/24/16 08:20 133 10/24/16 08:00 96.5 101 17 148/100 99 Room Air 112 10/24/16 08:00 78 10/24/16 07:52 Room Air 10/24/16 07:51 99 Room Air 10/24/16 07:50 100 16 Room Air 10/24/16 04:12 98.6 78 21 142/94 98 Room Air 10/24/16 04:00 65 10/24/16 00:16 97.3 64 20 146/96 94 Room Air 10/24/16 00:00 60 10/23/16 20:47 87 132/102 General Appearance: no apparent distress, alert Neck: no JVD Cardiovascular: normal rate, regular rhythm Respiratory/Chest: lungs clear, normal breath sounds, no respiratory distress Abdomen: normal bowel sounds, non tender, soft Extremities: no swelling Intake and Output 10/23/16 10/24/16 19:00 07:00 Intake Total 480 ml Balance 480 ml Intake Oral 480 ml # Voids 2 # Bowel Movements 2 Laboratory Tests Test 10/24/16 06:25 Sodium Level 141 mEQ/L (135-145) Potassium Level 4.3 mEQ/L (3.4-4.9) Chloride Level 98 mEQ/L (98-107) Carbon Dioxide Level 23 mEQ/L (20-30) Anion Gap 20 (5-15) H Blood Urea Nitrogen 21 mg/dL (7-23) Creatinine 1.0 mg/dL (0.7-1.2) Estimat Glomerular Filtration Rate > 60 mL/min (>60) Glucose Level 106 mg/dL (74-106) Calcium Level 9.7 mg/dL (8.6-10.2) JENNIFER SUTTON Oct 24, 2016 20:04
[2016-10-25] VITALS: BP 136/98
[2016-10-25 04:00] VITALS: BP 123/83
[2016-10-25] MEDS ORDERED: Lisinopril 20mg tab ORAL ONE (06:00)
[2016-10-25 08:13] VITALS: BP 149/104
--- NOTE | 2016-10-25 08:57 | Cardiology Report ---
APPROVED REPORT EXAM: Two-dimensional and M-mode echocardiogram with Doppler and color Doppler. INDICATION Left ventricular function M-Mode DIMENSIONS IVSd1.4 (0.7-1.1cm)Left Atrium (MM)4.5 (1.6-4.0cm) LVDd5.4 (3.5-5.6cm)Aortic Root3.6 (2.0-3.7cm) PWd1.2 (0.7-1.1cm)Aortic Cusp Exc.1.8 (1.5-2.0cm) LVDs3.7 (2.5-4.0cm) PWs1.4 cm Normal left ventricular chamber size, systolic function and wall motion. Left ventricular ejection fraction estimated to be 55-60 %. Mild left ventricular hypertrophy. No evidence of pericardial fat or effusion. Mild left atrial enlargement by 2D. Right cardiac chamber sizes are within normal limits. Focal aortic valve sclerosis with adequate cusp excursion Thickened mitral valve leaflets with normal excursion. Mild mitral annulus and aortic root calcification. Pulmonic valve is well visualized. Normal tricuspid valve structure. IVC is normal in size with physiologic collapse. Small echodensity seen on anterior mitral valve leaflet (vegitation). Consider LATOYA if clinically indicated. A color flow and spectral Doppler study was performed and revealed: Mild aortic regurgitation. No mitral regurgitation. Left ventricular diastolic dysfunction grade 1. No tricuspid regurgitation.
[2016-10-25] MEDS: Aspirin Baby 81mg ORAL SCH (09:21)
[2016-10-25] MEDS: Metoprolol Tartrate 12.5mg TAB ORAL SCH (09:22)
[2016-10-25 11:47] VITALS: BP 133/94
--- NOTE | 2016-10-25 13:35 | Pulmonology Progress Note ---
Assessment/Plan Problems: (1) ACS (acute coronary syndrome) (2) Bradycardia (3) Hypokalemia (4) Hypertension Assessment/Plan bp better Continue amlodipine, losartan. added hctz for better bp control cardiology cleared the patient for discharge. Subjective ROS Limited/Unobtainable: No Interval Events: feeling better Allergies: Coded Allergies: No Known Allergies (Unverified , 10/18/16) Objective Last 24 Hour Vital Signs Date Time Temp Pulse Resp B/P Pulse Ox O2 Delivery O2 Flow Rate FiO2 10/25/16 11:47 97.0 72 20 133/94 97 Room Air 10/25/16 10:40 87 16 Room Air 10/25/16 10:40 97 Room Air 21 10/25/16 10:40 Room Air 10/25/16 09:22 104 149/104 10/25/16 09:22 104 149/104 10/25/16 08:13 97.7 104 18 149/104 99 Room Air 10/25/16 08:00 110 10/25/16 06:53 123/83 10/25/16 04:00 71 10/25/16 04:00 97.2 69 16 123/83 96 Room Air 10/25/16 00:00 68 10/25/16 00:00 98.1 68 20 136/98 95 Room Air 10/24/16 20:52 94 145/110 10/24/16 20:00 106 10/24/16 20:00 97.8 94 20 145/110 99 Room Air 10/24/16 16:00 70 10/24/16 16:00 97.9 73 21 132/98 95 Room Air Intake and Output 10/24/16 10/25/16 19:00 07:00 Intake Total 460 ml 250 ml Balance 460 ml 250 ml Intake Oral 460 ml 250 ml # Voids 2 4 # Bowel Movements 1 General Appearance: WD/WN HEENT: normocephalic, anicteric Respiratory/Chest: chest wall non-tender, normal breath sounds Cardiovascular: normal peripheral pulses, normal rate Abdomen: normal bowel sounds, soft, non tender Genitourinary: normal external genitalia Extremities: no cyanosis 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, no motor/sensory deficits Lymphatic: no neck adenopathy Current Medications Medications (Trade) Dose Ordered Sig/Yang Route PRN Reason Start Time Stop Time Status Last Admin Dose Admin Acetaminophen (Tylenol) 650 mg Q4H PRN ORAL T>100.5 10/21/16 15:00 11/20/16 14:59 Albuterol/ Ipratropium (DuoNeb 0.5-3(2.5)mg/3ml) 3 ml Q4H PRN HHN Shortness of Breath 10/21/16 15:00 10/26/16 14:59 Alprazolam (Xanax) 0.5 mg QHS PRN ORAL For Anxiety 10/21/16 21:00 10/28/16 20:59 Amlodipine Besylate (Norvasc) 10 mg DAILY ORAL 10/22/16 09:00 11/21/16 08:59 10/25/16 09:22 Aspirin (ASA) 162 mg DAILY ORAL 10/22/16 09:00 11/21/16 08:59 10/25/16 09:21 Enalaprilat (Vasotec) 2.5 mg Q6H PRN IV sbp more than 160 10/21/16 15:00 11/20/16 14:59 Hydralazine HCl (Apresoline) 10 mg Q4H PRN IV sbp greater than 160 10/21/16 15:00 11/20/16 14:59 Hydrochlorothiazide (Hydrodiuril) 25 mg DAILY ORAL 10/24/16 09:00 11/23/16 08:59 10/25/16 09:22 Metoprolol Tartrate (Lopressor) 12.5 mg Q12HR ORAL 10/23/16 21:00 11/22/16 20:59 10/25/16 09:22 Ondansetron HCl (Zofran) 4 mg Q6H PRN IVP Nausea & Vomiting 10/21/16 15:00 11/20/16 14:59 Pantoprazole (Protonix) 40 mg DAILY ORAL 10/22/16 09:00 11/21/16 08:59 10/25/16 09:21 Polyethylene Glycol (Miralax) 17 gm DAILYPRN PRN ORAL Constipation 10/21/16 15:00 11/20/16 14:59 MINERVA RENTERIA Oct 25, 2016 13:35
[2016-10-25] MEDS ORDERED: LISINOPRIL40 MG ORAL (14:53)
[2016-10-25] MEDS ORDERED: NORVASC10 MG ORAL (14:54)
[2016-10-25] MEDS ORDERED: DIURIL25 MG ORAL (14:55)
[2016-10-25] MEDS ORDERED: HYDRALAZINE HCL25 M2 PO (14:56)
--- NOTE | 2016-10-26 09:30 | Cardiology Report ---
APPROVED REPORT EKG Measurement Heart [id number] Unusual P axis, possible ectopic atrial bradycardia Nonspecific ST and T wave abnormality Voltage for LVH Abnormal ECG
--- NOTE | 2016-10-26 21:13 | Discharge Summary ---
Discharge Summary Hospital Course Date of Admission Oct 18, 2016 at 20:51 Date of Discharge Oct 25, 2016 at 16:20 Admitting Diagnosis Rule Out Acute Coronary Syndrone, Bradycardia HPI Gamal Wallace is a 61 year old male who was admitted on Oct 18, 2016 at 20:51 for Ruled Out Acute Coronary Syndrome,Bradycardia Hospital Course [id number] Discharge Discharge Disposition Patient was discharged to Home (01) Discharge Diagnoses: Meche De Anda NP Oct 26, 2016 21:13
--- NOTE | 2016-10-27 09:08 | Discharge Summary 2 SIG ---
DATE OF ADMISSION: 10/18/2016 DATE OF DISCHARGE: 10/25/2016 CONSULTANTS: Jassi Stephens M.D. BRIEF HOSPITAL COURSE: The patient is a 61-year-old male with history of hypertension, noncompliant with medications, was brought in by paramedics because of all day nausea, vomiting, diaphoresis and chest pain. He was given nitroglycerin and aspirin with improvement of chest pain. At ED, the patient was bradycardic. He was given atropine and was placed on external pacemaker pads. Repeat serial EKG did not show ST elevation. The patient was admitted to ICU. Dr. Stephens was consulted. The patient had several EKGs and had some ST-segment elevation in leads V1 and V2, more pronounced in the second EKG. He did have T-wave inversion in V1 and V2. Earlier, it was in V3 and V4. His earlier EKGs did not have any evidence of T-wave inversion in those leads. Troponin was less than 0.003. He was started on heparin. Troponins were negative. The patient was bradycardic on the monitor, however, it is remained sinus with no pause. He underwent a nuclear treadmill stress test and results were nonischemic. He was cleared for discharge, however, he was evaluated for possible pheochromocytoma and was advised that he would need to follow up with his PMD regarding result. He was given instructions with a Divehi speaking nurse and he verbalized understanding. He was discharged home. FINAL DIAGNOSES: 1. Chest pain. 2. Coronary syndrome, now unlikely. 3. Hypertension. 4. Hyperlipidemia. 5. Bradycardia, possibly vagal related. 6. Headache. 7. Recurrent nausea and vomiting. 8. Diaphoresis. Arianna Melo M.D. I have been assigned to dictate discharge summary on this account and I was not involved in the patient's management. Meche De Anda N.P. DR: Jean Carlos JOB#: [id number] CC: POP
--- NOTE | 2016-10-27 12:59 | Cardiology Report ---
APPROVED REPORT EKG Measurement Heart [id number] Sinus bradycardia Nonspecific ST and T wave abnormality Abnormal ECG
== END 2016-10-25 16:20 | disposition home or self-care (01) | DRG 201 ==
LOC: EDBD 20:17 → EMR 20:49 → EDBEDREQ 20:51 → ICU 20:51 → EDBEDREQ 21:26 → EDBEDREQSVC 21:26 → EDBEDREQTM 22:44 → EDBEDREQ 23:05 → 2E 10-21 14:52
DX: R00.1 Bradycardia, unspecified (principal); I10 Essential (primary) hypertension; E87.6 Hypokalemia; E78.5 Hyperlipidemia, unspecified; R61 Generalized hyperhidrosis; Z23 Encounter for immunization; Z91.14 Patient's other noncompliance with medication regimen; R11.2 Nausea with vomiting, unspecified; R07.9 Chest pain, unspecified; R51 Headache; Z87.891 Personal history of nicotine dependence
CPT/HCPCS: 36415; 71010; 78452; 80048; 80053; 80061; 82550; 82553; 82962; 83735; 84100; 84443; 84484; 85025; 85610; 85730; 86140; 87081; 93005; 93017; 93306; 94664; 94760; J2405